=== PATIENT | male | born 1975 ===

== ENCOUNTER → 2024-03-29 09:20 | Outpatient (BNVA) | payer OTHER, SELFPAY | PROVIDERS: Family Provider Nurse Practitioner Family; PCP Nurse Practitioner Family; Visit Provider Nurse Practitioner | DX: Z23 Encounter for immunization (principal); Z76.89 Persons encountering health services in other specified circumstances; E78.5 Hyperlipidemia, unspecified | CPT/HCPCS: 80053; 80061; 85025 ==